=== PATIENT | female | born 1990 | race African-American/Black ===

== ENCOUNTER 2017-09-12 11:02 | Emergency (ER) | payer MEDICAID ==
[~2017-09-12] VITALS: Ht 157.5 cm; Wt 60.3 kg
--- NOTE | 2017-09-12 12:28 | Emergency Room Report ---
History of Present Illness General Chief Complaint: Female Urogenital Problems Source: Patient Present Illness HPI This patient is here concerned for "possible miscarriage." Her period was late, +home test, and then period came. Total of 8 days late. Pt. is at end of period now and she only got checked in b/c her mom was being seen in ED for a fall. There are no other complaints. No abd pain. Two healthy pregnancies in the past. No trauma, no fever, no shortness of breath, no travel history, no leg swelling. no chest pain, no diaphoresis, no exertional complaints, no nausea , no vomiting, no diarrhea, no abdominal pain. Tolerating po fine, normal urinary output, normal bm. No syncope, LOC, dizziness, lightheadedness, headache. No recent surgery. No oral contraceptive use. No other contraceptive use. No vag d/c. Allergies: Coded Allergies: No Known Allergies (Unverified , 09/12/17) Patient History Last Menstrual Period: 08/09/17 Now: Yes : 3 Para: 2 Nursing Documentation-[facility] Past Medical History: No Stated History Review of Systems Constitutional: Denies: fever Eye: Denies: acuity changes Respiratory: Denies: cough, shortness of breath Cardiovascular: Denies: chest pain Gastrointestinal: Denies: nausea, vomiting Skin: Denies: rash Neurological: Denies: headache Physical Exam Vital Signs Date Time Temp Pulse Resp B/P (MAP) Pulse Ox O2 Delivery O2 Flow Rate FiO2 09/12/17 11:17 98.3 77 18 109/69 96 Room Air 98.2 General Appearance: well appearing, no apparent distress Head: normocephalic, atraumatic ENT: hearing grossly normal, normal voice Neck: full range of motion, supple Respiratory: no respiratory distress, speaking full sentences Musculoskeletal: no calf tenderness Neurologic: alert, normal gait Psychiatric: mood/affect normal Skin: no rash Medical Decision Making Diagnostic Impression: Primary Impression: Chemical ER Course I was informed patient left prior to lab draw. Last Vital Signs Date Time Temp Pulse Resp B/P (MAP) Pulse Ox O2 Delivery O2 Flow Rate FiO2 09/12/17 11:17 98.3 77 18 109/69 96 Room Air 98.2 Disposition: HOME, SELF-CARE Condition: Stable Andrés Whipple M.D. Sep 12, 2017 12:28
[2017-09-12 12:45] VITALS: BP 109/69
== END 2017-09-12 12:46 | disposition left against medical advice (07) ==
LOC: EMR 12:26
DX: O46.90 Antepartum hemorrhage, unspecified, unspecified trimester (principal); Z3A.00 Weeks of gestation of pregnancy not specified
CPT/HCPCS: 99283